=== PATIENT | male | born 1965 | race Two or more races ===

== ENCOUNTER 2025-09-01 09:44 | Emergency (ER) | payer OTHER ==
[~2025-09-01] VITALS: Ht 182.9 cm; Wt 81.6 kg
[2025-09-01] MEDS ORDERED: SODIUM CHLORIDE 0.45 % 1,000 ML IV STA (10:01)
[2025-09-01 10:21] LABS: BASO % 0.7 % (0.1-1.2); EOS # 0.21 (0.04-0.54); EOS % 2.9 % (0.7-7.0); LYMPH # 1.30 (1.18-3.74); LYMPH % 18.0 % (19.3-53.1); MEAN PLATELET VOLUME 10.60 fl (9.4-12.4); MONO # 0.46 (0.24-0.82); MONO % 6.4 % (4.7-12.5); NEUT # 5.16 (1.56-6.13); NEUT % 71.2 % (34.0-71.1); RED CELL DISTRIBUTION WIDTH 14.2 % (11.6-14.4)
[2025-09-01 11:08] LABS: ALT/SGPT 29.0 U/L (12-78); AST/SGOT 13.0 U/L (15-37); BILIRUBIN TOTAL 0.21 mg/dL (0.3-1.2); BUN CREA RATIO 15.0 (7.0-25.0); CREATININE SERUM 1.22 mg/dL (0.70-1.30); GFR 60.19; GLOBULINA 3.5 G/DL (2.4-3.5); GLUCOSE FASTING 163.0 mg/dL (65-100); OSMOLALITY SERUM 292.0 MOSM/KG (275-295)
[2025-09-01 11:23] LABS: URINE APPEARANCE Clear; URINE BILIRRUBIN Negative (NEGATIVE); URINE BLOOD Negative; URINE COLOR Yellow; URINE KETONE Trace (NEGATIVE); URINE LEUKOCYTE Negative; URINE NITRATE Negative; URINE PROTEIN Trace (NEGATIVE); URINE UROBILINOGEN 0.2 E.U./dl
[2025-09-01 11:27] LABS: URINE BACTERIA 6.0 uL (0.0-1933); URINE EPITHELIAL CELLS 7.6 uL (0.0-38.8); URINE WBC 3.5 uL (0.0-23.2)
[2025-09-01 11:44] LABS: URINE CAST 0.73 uL (0.0-1.40); URINE GLUCOSE >=1000 MG/DL (NEGATIVE); URINE RBC 1.4 uL (0.0-20.8)
[2025-09-01] MEDS ORDERED: KETOROLAC TROMETHAMINE 15 MG VIAL IV STA (12:18)
[2025-09-01] MEDS ORDERED: KETOROLAC TROMETHAMINE 30 MG VIAL ONE (12:23)
== END 2025-09-01 12:37 | disposition home or self-care (01) ==
LOC: ER 09:44
PROVIDERS: General Practice
DX: R56.9 Unspecified convulsions (principal); I10 Essential (primary) hypertension; E11.9 Type 2 diabetes mellitus without complications